=== PATIENT | male | born 1965 | race Caucasian/White ===

== ENCOUNTER 2017-05-02 11:23 | Emergency (ER) | payer SELFPAY ==
--- NOTE | 2017-05-02 11:35 | ER Document Report ---
ED Medical Screen (RME) - General Stated Complaint: GROIN PAIN Time Seen by Provider: 05/02/17 11:33 Notes: Patient presents stating that he is having severe right groin pain since lifting a heavy freezer 2 days ago. He states that he does not have any problems with urination. He states he does feel that he is constipated. No vomiting.
[2017-05-02 12:15] LABS: ABSOLUTE EOSINOPHILS # (AUTO) 0.1 10^3/uL (0.0-0.6); ABSOLUTE LYMPHOCYTES (AUTO) 2.2 10^3/uL (0.5-4.7); ABSOLUTE MONOCYTES (AUTO) 0.4 10^3/uL (0.1-1.4); BASOPHILS % (AUTO) 0.6 % (0-2); EOSINOPHILS % (AUTO) 1.4 % (0-6); HEMATOCRIT 43.4 % (37.9-51.0); HEMOGLOBIN 14.8 g/dL (13.5-17.0); LYMPHOCYTES % (AUTO) 37.9 % (13-45); MEAN CORPUSCULAR HEMOGLOBIN 33.4 pg (27.0-33.4); MEAN CORPUSCULAR HGB CONC 34.1 g/dL (32.0-36.0); MEAN CORPUSCULAR VOLUME 98 fl (80-97); MONOCYTES % (AUTO) 7.7 % (3-13); RED BLOOD COUNT 4.44 10^6/uL (4.35-5.55); RED CELL DISTRIBUTION WIDTH 13.7 % (11.5-14.0); SEGMENTED NEUTROPHILS % (AUTO) 52.4 % (42-78); WHITE BLOOD COUNT 5.8 10^3/uL (4.0-10.5)
[2017-05-02 12:22] LABS: APPEARANCE,URINE CLEAR; BILIRUBIN,URINE NEGATIVE (NEGATIVE); GLUCOSE, URINE NEGATIVE (NEGATIVE); KETONES,URINE NEGATIVE (NEGATIVE); LEUKOCYTE ESTERASE,URINE NEGATIVE (NEGATIVE); NITRITE,URINE NEGATIVE (NEGATIVE); PROTEIN,URINE NEGATIVE (NEGATIVE); URINE SPECIFIC GRAVITY 1.001; UROBILINOGEN,URINE NEGATIVE mg/dL (<2.0)
[2017-05-02 12:42] LABS: ALANINE AMINOTRANSFERASE 33 U/L (21-72); ALBUMIN 4.6 g/dL (3.5-5.0); ALCOHOL 253 mg/dL (NONE DETECTED); ALKALINE PHOSPHATASE 50 U/L (38-126); ANION GAP 13 (5-19); ASPARTATE AMINO TRANSFERASE 53 U/L (17-59); BILIRUBIN,DIRECT 0.4 mg/dL (0.0-0.4); BILIRUBIN,TOTAL 0.6 mg/dL (0.2-1.3); BLOOD UREA NITROGEN 4 mg/dL (7-20); CALCIUM 9.9 mg/dL (8.4-10.2); CARBON DIOXIDE 28 mmol/L (22-30); CHLORIDE 104 mmol/L (98-107); CREATININE RESULT 0.59 mg/dL (0.52-1.25); GLUCOSE 73 mg/dL (75-110); POTASSIUM 4.1 mmol/L (3.6-5.0); SODIUM 144.8 mmol/L (137-145); TOTAL PROTEIN 7.9 g/dL (6.3-8.2)
--- NOTE | 2017-05-02 13:45 | RADIOLOGY REPORT (SQ) ---
EXAM DESCRIPTION: CT ABD/PELVIS NO ORAL OR IV COMPLETED DATE/TIME: 05/02/2017 12:17 pm REASON FOR STUDY: pain/rlq COMPARISON: None. TECHNIQUE: CT scan of the abdomen and pelvis performed without intravenous or oral contrast. Images reviewed with lung, soft tissue, and bone windows. Reconstructed coronal and sagittal MPR images revi ewed. All images stored on PACS. All CT scanners at this facility use dose modulation, iterative reconstruction, and/or weight based d osing when appropriate to reduce radiation dose to as low as reasonably achievable (ALARA). [facility]: Dose Right [facility]: CareDose [facility]: Dose Right [facility]: Teradose 4D [facility]: [email or web address] RADIATION DOSE: Up-to-date CT equipment and radiation dose reduction techniques were employed. CTDIv ol: 4.8 mGy. DLP: 298 mGy-cm.mGy. LIMITATIONS: Patient motion. FINDINGS: LOWER CHEST: No significant findings. No nodules or infiltrates. NON-CONTRASTED LIVER, SPLEEN, ADRENALS: Old granulomatous disease in the spleen. PANCREAS: No masses. No peripancreatic inflammatory changes. GALLBLADDER: No identified stones by CT criteria. No inflammatory changes to suggest cholecystitis. RIGHT KIDNEY AND URETER: No suspicious masses. Assessment limited by lack of IV contrast. No signif icant calcifications. No hydronephrosis or hydroureter. LEFT KIDNEY AND URETER: No suspicious masses. Assessment limited by lack of IV contrast. No signifi cant calcifications. No hydronephrosis or hydroureter. AORTA AND RETROPERITONEUM: No aneurysm. No retroperitoneal masses or adenopathy. BOWEL AND PERITONEAL CAVITY: Abundant gas in the colon. No obvious masses or inflammatory changes. N o free fluid. APPENDIX: Not visualized. PELVIS, BLADDER, AND ABDOMINAL WALL:No abnormal masses. No free fluid. Bladder normal. BONES: No significant findings. OTHER: No other significant finding. IMPRESSION: Abundant colonic gas. No evidence of obstruction. No evidence of obstructive uropathy. COMMENT: Quality ID # [id number]: Final reports with documentation of one or more dose reduction techniques (e.g., Automated exposure control, adjustment of the mA and/or kV according to patient size, use of iterative reconstruction technique) TECHNICAL DOCUMENTATION: JOB ID: [id number] [employer]- All Rights Reserved
--- NOTE | 2017-05-02 14:11 | ER Document Report ---
ED General - General Chief Complaint: Lower Abdominal Pain Stated Complaint: GROIN PAIN Time Seen by Provider: 05/02/17 11:33 Mode of Arrival: Ambulatory Information source: Patient Notes: Patient presents with right lower quadrant abdominal pain. He states this started a couple days ago after lifting heavy fridge. He states he has some burning in his inguinal area. He denies any other problems. No problems with bowel movements or urination. No vomiting. Patient states that he feels may have a hernia. Pain is intermittent. It is moderate. It does radiate to the right inguinal area. Nothing appears to make it better or worse. TRAVEL OUTSIDE OF THE [place] IN LAST 30 DAYS: No Past Medical History - General Information source: Patient - Social History Smoking Status: Current Every Day Smoker Cigarette use (# per day): Yes Frequency of alcohol use: Occasional Drug Abuse: None Family History: Reviewed & Not Pertinent Patient has suicidal ideation: No Patient has homicidal ideation: No Renal/ Medical History: Denies: Hx Peritoneal Dialysis Review of Systems - Review of Systems Constitutional: denies: Chills, Fever Cardiovascular: denies: Chest pain, Palpitations Respiratory: denies: Cough, Short of breath Gastrointestinal: Abdominal pain. denies: Diarrhea, Vomiting -: Yes All other systems reviewed and negative Physical Exam - Vital signs Vitals: Temp Pulse Resp BP Pulse Ox 97.4 F 96 16 141/92 H 100 05/02/17 11:32 05/02/17 11:32 05/02/17 11:32 05/02/17 11:32 05/02/17 11:32 Interpretation: Hypertensive - General General appearance: Appears well, Alert - HEENT Head: Normocephalic, Atraumatic Eyes: Normal Pupils: PERRL - Respiratory Respiratory status: No respiratory distress Chest status: Nontender Breath sounds: Normal Chest palpation: Normal - Cardiovascular Rhythm: Regular Heart sounds: Normal auscultation Murmur: No - Abdominal Inspection: Normal Distension: No distension Bowel sounds: Normal Tenderness: Nontender Organomegaly: No organomegaly - Genitourinary Inspection: Normal Tenderness: Nontender Scrotum: Normal, Other - I do not appreciate a mass in either inguinal area. No tenderness in either inguinal canal. - Back Back: Normal, Nontender - Extremities General upper extremity: Normal inspection, Nontender, Normal color, Normal ROM , Normal temperature General lower extremity: Normal inspection, Nontender, Normal color, Normal ROM , Normal temperature, Normal weight bearing. No: Chandni's sign - Neurological Neuro grossly intact: Yes Cognition: Normal Orientation: AAOx4 Bhumika Coma Scale Eye Opening: Spontaneous Bhumika Coma Scale Verbal: Oriented Bhumika Coma Scale Motor: Obeys Commands Bhumika Coma Scale Total: 15 Speech: Normal Motor strength normal: LUE, RUE, LLE, RLE Sensory: Normal - Psychological Associated symptoms: Normal affect, Normal mood - Skin Skin Temperature: Warm Skin Moisture: Dry Skin Color: Normal Course - Vital Signs Vital signs: Temp Pulse Resp BP Pulse Ox 97.4 F 96 16 141/92 H 100 05/02/17 11:32 05/02/17 11:32 05/02/17 11:32 05/02/17 11:32 05/02/17 11:32 - Laboratory Result Diagrams: 05/02/17 12:01 05/02/17 12:01 Laboratory results interpreted by me: 05/02/17 05/02/17 05/02/17 12:01 12:01 12:01 MCV 98 H BUN 4 L Glucose 73 L Urine Blood SMALL H - Diagnostic Test Radiology reviewed: Image reviewed - ct no acute path, Reports reviewed Discharge - Discharge Clinical Impression: Right lower quadrant abdominal pain, Alcohol intoxication Condition: Stable Disposition: HOME, SELF-CARE Instructions: Abdominal Pain ([facility]) Additional Instructions: Please call the surgeon, Dr. Lopez as soon as possible to arrange follow-up Forms: Elevated Blood Pressure Referrals: YUN LOPEZ MD [JAKI [email or web address]] - Follow up as needed
[2017-05-02 14:29] VITALS: BP 149/66
== END 2017-05-02 14:21 | disposition home or self-care (01) ==
LOC: ER 11:23
DX: R10.31 Right lower quadrant pain (principal); X50.0XXA Overexertion from strenuous movement or load, initial encounter; F10.129 Alcohol abuse with intoxication, unspecified; F17.210 Nicotine dependence, cigarettes, uncomplicated
CPT/HCPCS: 36415; 74176; 80053; 80307; 81001; 85025; 99284